=== PATIENT | female | born 1935 | race Caucasian/White ===

== ENCOUNTER 2018-05-19 22:02 | Emergency (ER) | payer MEDICARE, OTHER ==
[2018-05-19 22:07] VITALS: BP 183/86; PULSE 67; TEMP 98.9; BMI 31.1
--- NOTE | 2018-05-19 22:21 | PDOC ---
Attending Attestation - HPI HPI: This patient is an 82 year old Czech-speaking female with PMHx of HTN, HLD, and GERD who presenting with diffcult and painful swallowing since 3pm. Patient states that after eating some chicken and rice that she made, she felt something in stuck in her throat that won't dissipate. She states that it hurts if she tries to swallow any food or drink. She does reports having a wishbone stuck in her throat 7 yrs ago. She denies sob or difficulty breathing. She denies any fever, chills, cough, nausea, or vomiting. Allergies: aspirin (anaphylaxis) - Physicial Exam PE: GENERAL: Awake, alert, and fully oriented, in no acute distress HEAD: No signs of trauma EYES: PERRLA, EOMI, sclera anicteric, conjunctiva clear ENT: Auricles normal inspection, hearing grossly normal, nares patent, Oropharynx is difficult to visualize. Mild tonsilar erythema. Uvula miline. Voice is hoarse. NECK: Normal ROM, supple, no lymphadenopathy, JVD, or masses LUNGS: Breath sounds equal, clear to auscultation bilaterally. No wheezes, and no crackles HEART: Regular rate and rhythm, normal S1 and S2, no murmurs, rubs or gallops ABDOMEN: Soft, nontender, normoactive bowel sounds. No guarding, no rebound. No masses EXTREMITIES: Normal range of motion, no edema. No clubbing or cyanosis. No cords, erythema, or tenderness NEUROLOGICAL: Cranial nerves II through XII grossly intact. SKIN: Warm, Dry, normal turgor, no rashes or lesions noted. <Yamileth Conley - Last Filed: 05/19/18 23:49> - Resident Resident Name: Ольга Garrett - Medical Decision Making 05/20/18 00:16 Pt presents to the ED complaining of foreign body sensation consistent with bone stuck in her throat after eating chicken with bones. No FB visualized on exam. Initial plan was for CT soft tissue neck to rule out foreign body, but patient coughed up a large bone fragment in the Ed. Now feels back to her baseline and is able to swallow without pain. Will discharge home with instructions to return immediately to the ED for worsening symptoms. <Manisha Valderrama - Last Filed: 05/20/18 00:24> Attestations - Attestations 05/19/18 23:54 Documentation prepared by Yamileth Conley, acting as medical laboratory manager for Manisha Valderrama MD. <Yamileth Conley - Last Filed: 05/19/18 23:49>
--- NOTE | 2018-05-19 22:21 | PDOC ---
History of Present Illness <Manisha Valderrama - Last Filed: 05/20/18 00:24> - History of Present Illness Initial Comments: 82 year old female with PMH of HTN, HLD, and GERD presenting with odynophagia and dysphagia since 15:00. Allergic to aspirin (anaphylaxis). States that she was eating chicken that she de-boned herself and some rice. States that her throat felt uncomfortable and that she felt as if something was stuck in her throat. Her throat has been more painful since and it has hurt to swallow and speak. Denies any fever, chills, nausea, vomiting, SOB, or other symptoms. 05/19/18 22:39 <Ольга Garrett - Last Filed: 05/20/18 01:40> - General Chief Complaint: Choking Sensation Stated Complaint: DISCOMFORT IN THROAT Time Seen by Provider: 05/19/18 22:21 Past History <Manisha Valderrama - Last Filed: 05/20/18 00:24> - Past Medical History COPD: No HTN: Yes Other medical history: ostroperosis - Suicide/Smoking/Psychosocial Hx Smoking History: Never smoked Hx Alcohol Use: No Drug/Substance Use Hx: No <Ольга Garrett - Last Filed: 05/20/18 01:40> - Past Medical History Allergies/Adverse Reactions: Allergies Allergy/AdvReac Type Severity Reaction Status Date / Time aspirin Allergy Mild Verified 05/19/18 23:48 Home Medications: Ambulatory Orders NK [No Known Home Medication] 05/19/18 Review of Systems - Review of Systems Constitutional: No: Chills, Diaphoresis, Fever HEENTM: No: Eye Pain, Blurred Vision, Tearing Respiratory: Yes: Other (throatr pain). No: Cough, Shortness of Breath, Productive cough Cardiac (ROS): No: Chest Pain, Edema, Irregular Heart Rate ABD/GI: No: Constipated, Diarrhea, Nausea, Vomiting : No: Burning, Dysuria, Discharge Integumentary: No: Bruising, Erythema, Flushing Neurological: No: Headache, Numbness, Paresthesia Psychiatric: No: Anxiety, Depression Hematologic/Lymphatic: No: Anemia, Blood Clots, Easy Bleeding <Ольга Garrett - Last Filed: 05/20/18 01:40> *Physical Exam - Vital Signs Last Vital Signs Temp Pulse Resp BP Pulse Ox 98.9 F 67 16 183/86 H 98 05/19/18 22:04 05/19/18 22:04 05/19/18 22:04 05/19/18 22:04 05/19/18 22:04 <Lucio Valderramaiam - Last Filed: 05/20/18 00:24> - Vital Signs Last Vital Signs Temp Pulse Resp BP Pulse Ox 98.9 F 67 16 183/86 H 98 05/19/18 22:04 05/19/18 22:04 05/19/18 22:04 05/19/18 22:04 05/19/18 22:04 - Physical Exam General Appearance: Yes: Nourished, Appropriately Dressed. No: Apparent Distress HEENT: positive: EOMI, MIGNON, Normal Voice. negative: Normal ENT Inspection ( mild posterior orapharyngeal erythema and mild swelling. NO FOB noted.) Neck: positive: Trachea midline, Normal Thyroid, Supple. negative: Tender, Rigid Respiratory/Chest: positive: Lungs Clear, Normal Breath Sounds. negative: Chest Tender, Respiratory Distress, Accessory Muscle Use Cardiovascular: positive: Regular Rhythm, Regular Rate Gastrointestinal/Abdominal: positive: Normal Bowel Sounds, Flat, Soft. negative : Tender Lymphatic: negative: Adenopathy, Tenderness Musculoskeletal: positive: Normal Inspection. negative: Decreased Range of Motion Extremity: positive: Normal Capillary Refill, Normal Inspection, Normal Range of Motion. negative: Tender Integumentary: positive: Normal Color, Dry, Warm Neurologic: positive: Fully Oriented, Alert, Normal Mood/Affect, Normal Response , Motor Strength 5/5 <Ольга Garrett - Last Filed: 05/20/18 01:40> ED Treatment Course - LABORATORY CBC & Chemistry Diagram: 05/19/18 23:30 05/19/18 23:30 - ADDITIONAL ORDERS Additional order review: Laboratory Results 05/19/18 05/19/18 23:30 23:30 PT with INR 12.80 INR 1.08 Sodium 138 Potassium 4.1 Chloride 105 Carbon Dioxide 28 Anion Gap 5 L BUN 16 Creatinine 0.8 Creat Clearance w eGFR 69.02 Random Glucose 115 H Calcium 8.7 Total Bilirubin 0.3 AST 21 ALT 20 Alkaline Phosphatase 107 Total Protein 7.6 Albumin 3.3 L 05/19/18 23:30 RBC 4.47 MCV 88.8 MCHC 34.8 RDW 12.9 MPV 7.4 L Neutrophils % 61.5 Lymphocytes % 29.5 Monocytes % 7.0 Eosinophils % 1.6 Basophils % 0.4 - Medications Given in the ED: ED Medications Discontinued Medications Generic Name Dose Route Start Last Admin Trade Name Demarco PRN Reason Stop Dose Admin Acetaminophen 1,000 mg 05/19/18 23:06 05/19/18 23:36 Ofirmev Injection - IVPB 05/19/18 23:07 1,000 mg ONCE ONE Administration <Manisha Valderrama - Last Filed: 05/20/18 00:24> - LABORATORY CBC & Chemistry Diagram: 05/19/18 23:30 05/19/18 23:30 <Ольга Garrett - Last Filed: 05/20/18 01:40> Medical Decision Making - Medical Decision Making Patient with suspected foreign body after ingestion of chicken and rice. CT was originally planned but patient coughed up two chicken bones in front of us. She states the she no longer feels the foreign body sensation in her throat so she no longer needs the CT. She was discharged with return precautions and follow up instructions. 05/20/18 01:37 <Ольга Garrett - Last Filed: 05/20/18 01:40> *DC/Admit/Observation/Transfer - Discharge Dispostion Decision to Admit order: No <Manisha Valderrama - Last Filed: 05/20/18 00:24> <Ольга Garrett - Last Filed: 05/20/18 01:40> Diagnosis at time of Disposition: Foreign body of throat Qualifiers: Encounter type: initial encounter Qualified Code(s): T17.208A - Unspecified foreign body in pharynx causing other injury, initial encounter - Discharge Dispostion Disposition: HOME Condition at time of disposition: Good - Referrals Referrals: Davie Hill MD [Primary Care Provider] - - Patient Instructions Printed Discharge Instructions: DI for Removal of Foreign Body From Esophagus Additional Instructions: You came to the ED complaining of a bone stuck in your throat. You were able to cough up the bone in the ED, and we are sending you home because you feel better. However if you feel pain in the throat or difficulty swallowing, you should return immediately to the ED. Also return for new or worsening symptoms.
[2018-05-19] MEDS ORDERED: ACETAMINOPHEN 1000 MG/100 ML VIAL (NON FORMULARY) IVPB ONE (23:06)
[2018-05-19] MEDS ORDERED: ACETAMINOPHEN INJECTION 100 ML IVPB ONE (23:21)
[2018-05-19 23:40] LABS: BASO % 0.4 % (0-2.0); EOS % 1.6 % (0-4.5); HEMATOCRIT 39.7 % (32.4-45.2); HEMOGLOBIN 13.8 GM/dL (10.7-15.3); LYMPH % 29.5 % (8-40); MCH 30.9 pg (25.7-33.7); MCHC 34.8 g/dl (32.0-36.0); MEAN CELL VOLUME 88.8 fl (80-96); MEAN PLT VOLUME 7.4 fl (7.5-11.1); NEUT % 61.5 % (42.8-82.8); PLATELET COUNT 240 K/MM3 (134-434); RBC 4.47 M/mm3 (3.60-5.2); RDW 12.9 % (11.6-15.6); WHITE BLOOD COUNT 8.7 K/mm3 (4.0-10.0)
[2018-05-19 23:58] LABS: INR 1.08 (0.83-1.09); PROTHROMBIN TIME (PATIENT) 12.8 SEC (9.7-13.0)
[2018-05-20 00:15] LABS: ALBUMIN 3.3 g/dl (3.4-5.0); ALK PHOS 107 U/L (45-117); ANION GAP 5 MMOL/L (8-16); BILIRUBIN,TOTAL 0.3 mg/dL (0.2-1); BLOOD UREA NITROGEN 16 mg/dL (7-18); CALCIUM 8.7 mg/dL (8.5-10.1); CHLORIDE 105 mmol/L (98-107); CO2 28 mmol/L (21-32); CREATININE 0.8 mg/dL (0.55-1.3); GLUCOSE,RANDOM 115 mg/dL (74-106); POTASSIUM 4.1 mmol/L (3.5-5.1); SGOT/AST 21 U/L (15-37); SGPT/ALT 20 U/L (13-61); SODIUM 138 mmol/L (136-145); TOT PROT 7.6 g/dl (6.4-8.2)
== END 2018-05-20 00:45 | disposition home or self-care (01) ==
LOC: JER 22:02
PROC: 3E033NZ Introduction of Analgesics, Hypnotics, Sedatives into Peripheral Vein, Percutaneous Approach (ICD-10-PCS; principal; 2018-05-19)
DX: T17.208A Unspecified foreign body in pharynx causing other injury, initial encounter (principal); X58.XXXA Exposure to other specified factors, initial encounter; Y93.89 Activity, other specified; Y92.038 Other place in apartment as the place of occurrence of the external cause; Y99.8 Other external cause status; I10 Essential (primary) hypertension; E78.5 Hyperlipidemia, unspecified; K21.9 Gastro-esophageal reflux disease without esophagitis; Z88.6 Allergy status to analgesic agent
CPT/HCPCS: 36415; 80053; 85025; 85610; 96374; 99281-25; J0131

== ENCOUNTER 2018-08-13 08:51 | Emergency (ER) | payer MEDICARE, OTHER ==
[2018-08-13 08:57] VITALS: BP 132/83; PULSE 55; TEMP 98.2; BMI 29.4
[2018-08-13] MEDS ORDERED: diphenhydrAMINE HCL 25 MG CAPSULE (FP) PO ONE ×2 (09:23→09:28)
[2018-08-13] MEDS ORDERED: DEXAMETHASONE LIQUID 0.5 MG/5 ML 240 ML BULK BOTTLE PO ONE (09:23)
--- NOTE | 2018-08-13 09:27 | PDOC ---
History of Present Illness - General Chief Complaint: Rash Stated Complaint: RASH Time Seen by Provider: 08/13/18 09:10 History Source: Patient Exam Limitations: No Limitations - History of Present Illness Initial Comments: 08/13/18 09:24 Armenian interpretation, since was in the garden and thinks was exposed to some type of plant that is caused swelling and itchin gto face . Denies shortness of breath, denies tongue or lip swelling. Denies wheezing. Is uncertain as to type of plant to resolve although has used Caladryl cream to face with minimal relief 08/13/18 14:19 Timing/Duration: reports: getting worse Severity: Yes: mild Location: reports: face Respiratory Risk Factors: reports: exposure to allergen Modifying Factors: improves with: calamine lotion Past History - Past Medical History Allergies/Adverse Reactions: Allergies Allergy/AdvReac Type Severity Reaction Status Date / Time aspirin Allergy Mild Verified 08/13/18 08:57 Home Medications: Ambulatory Orders NK [No Known Home Medication] 05/19/18 COPD: No GI Disorders: Yes (ulcers) HTN: Yes - Suicide/Smoking/Psychosocial Hx Smoking History: Never smoked Information on smoking cessation initiated: No Hx Alcohol Use: No Drug/Substance Use Hx: No Review of Systems - Review of Systems Able to Perform ROS?: No Is the patient limited Greek proficient: No Constitutional: Yes: Symptoms Reported, See HPI. No: Chills, Fever, Malaise HEENTM: Yes: See HPI. No: Symptoms Reported, Nose Pain, Nose Congestion, Throat Pain, Difficulty Swallowing, Mouth Swelling Respiratory: Yes: See HPI. No: Symptoms reported, Cough, Shortness of Breath, Wheezing Integumentary: Yes: Symptoms Reported, Pruritus (mild erythema, and pruritus noted to all of face consistent with areas she used topical applications to face ), Rash All Other Systems: Reviewed and Negative *Physical Exam - Vital Signs Last Vital Signs Temp Pulse Resp BP Pulse Ox 98.2 F 55 L 17 132/83 99 08/13/18 08:55 08/13/18 08:55 08/13/18 08:55 08/13/18 08:55 08/13/18 08:55 - Physical Exam General Appearance: Yes: Nourished, Appropriately Dressed HEENT: positive: MIGNON, Normal ENT Inspection (no swelling to lips, tongue, airway is patent.), TMs Normal, Pharynx Normal, Rhinorrhea Neck: positive: Supple. negative: Tender Respiratory/Chest: positive: Lungs Clear, Normal Breath Sounds Integumentary: positive: Normal Color, Dry, Warm, Other (with mild erythema and macular rash noted to forehead, cheeks, chin and extending only to face. Has no migration into scalp, no migration down to neck.) Neurologic: positive: emergency communications dispatcher II-XII NML intact, Fully Oriented, Alert, Normal Mood/ Affect, Normal Response, Motor Strength 5/5 Progress Note - Progress Note Progress Note: Contact dermatitis, given 1 dose of Decadron and encouraged to use Benadryl for antihistamine use and avoid contact with same *DC/Admit/Observation/Transfer Diagnosis at time of Disposition: Contact dermatitis Qualifiers: Contact dermatitis type: allergic Contact dermatitis trigger: non-food plants Qualified Code(s): L23.7 - Allergic contact dermatitis due to plants, except food - Discharge Dispostion Disposition: HOME Condition at time of disposition: Stable Decision to Admit order: No - Referrals - Patient Instructions Printed Discharge Instructions: DI for Contact Dermatitis Additional Instructions: Rest, keep cool and dry- avoid strenuous activity or hot /humid environments Less hot showers, no abrasive soaps May use heavy creams like Eucerin or Cetaphil to keep skin moist May apply Aveeno, calamine lotion, [id number] hydrocortisone creams as needed for symptoms May use Benadryl at night for antihistamine, Zyrtec/ Malathi or Claritin for daytime antihistamine use to help with itching May use [id number] hydrocortisone cream on all areas except face Try to identify cause for rash and avoid exposures Followup with PMD in one week if no resolution Make appointment with transition coach for evaluation when possible - Post Discharge Activity Forms/Work/School Notes: Back to Work
[2018-08-13] MEDS ORDERED: DEXAMETHASONE SOD PHOSPHATE 10 MG/1 ML VIAL ONE (09:28)
== END 2018-08-13 09:40 | disposition home or self-care (01) ==
LOC: JERFT 08:51
DX: L23.7 Allergic contact dermatitis due to plants, except food (principal)
CPT/HCPCS: 99281-25

== ENCOUNTER 2018-09-09 15:15 | Emergency (ER) | payer MEDICARE, OTHER ==
[2018-09-09 15:21] VITALS: BP 133/67; PULSE 63; TEMP 98.2; BMI 30.7
[2018-09-09] MEDS ORDERED: SULFAMETHOXAZOLE/TRIMETHOPRIM 800MG/160MG D.S. TABLET PO ONE (15:53)
[2018-09-09] MEDS ORDERED: CEPHALEXIN MONOHYDRATE 500 MG CAPSULE (UD) PO ONE (15:53)
[2018-09-09] MEDS ORDERED: SULFAMETHOXAZOLE/TRIMETHOPRIM 800MG/160MG D.S. TABLET ONE (15:59)
[2018-09-09] MEDS ORDERED: CEPHALEXIN MONOHYDRATE 500 MG CAPSULE (UD) ONE (16:00)
--- NOTE | 2018-09-09 16:32 | PDOC ---
History of Present Illness - General Chief Complaint: Bite Stated Complaint: INSECT BITE Time Seen by Provider: 09/09/18 15:29 History Source: Patient, Family Exam Limitations: Language Barrier Past History - Past Medical History Allergies/Adverse Reactions: Allergies Allergy/AdvReac Type Severity Reaction Status Date / Time aspirin Allergy Mild Verified 09/09/18 15:21 Home Medications: Ambulatory Orders Cephalexin Monohydrate [Keflex -] 500 mg PO Q6H #28 capsule 09/09/18 Clobetasol Propionate/Emoll [Clobetasol Emollient 0.05% Crm] 30 gm TP BID #1 cream..g. 09/09/18 Sulfamethoxazole/Trimethoprim [Bactrim Ds -] 1 tab PO BID #14 tablet 09/09/18 COPD: No GI Disorders: Yes (ulcers) HTN: Yes - Suicide/Smoking/Psychosocial Hx Smoking History: Never smoked Hx Alcohol Use: No Drug/Substance Use Hx: No *Physical Exam - Vital Signs Last Vital Signs Temp Pulse Resp BP Pulse Ox 98.2 F 63 18 133/67 97 09/09/18 15:18 09/09/18 15:18 09/09/18 15:18 09/09/18 15:18 09/09/18 15:18 - Physical Exam General Appearance: No: Apparent Distress Extremity: positive: Other (+few tiny blisters along LUE (along L upper arm), surrounding area of erythema and warmth; small area of induration, no fluctuance noted, no abscess, no streaking) Integumentary: positive: Erythema. negative: Mottled, Hives, Petechiae, Ecchymosis, Bruising Neurologic: positive: Alert, Normal Mood/Affect ED Treatment Course - Medications Given in the ED: ED Medications Discontinued Medications Generic Name Dose Route Start Last Admin Trade Name Freq PRN Reason Stop Dose Admin Cephalexin HCl 500 mg 09/09/18 15:53 09/09/18 16:04 Keflex - PO 09/09/18 15:54 500 mg ONCE ONE Administration Trimethoprim/Sulfamethoxazole 1 each 09/09/18 15:53 09/09/18 16:04 Bactrim Ds - PO 09/09/18 15:54 1 each ONCE ONE Administration Medical Decision Making - Medical Decision Making 82 y/o F hx of HTN, GERD, PUD presents with redness along L upper extremity from yesterday. Noticed something small yesterday but didn't heed much attention it. Today noticed area of redness. States area is also very itchy. Per daughter, patient only went to [employer] and grocery shopping yesterday. Denies recent yardwork/going to park/camping/hiking, recent travel, fever, sob, cp, abd pain, n/v. Possible poison johana with overlying cellulitis Given Keflex and Bactrim Area of redness demarcated 09/09/18 16:29 *DC/Admit/Observation/Transfer Diagnosis at time of Disposition: Poison johana Cellulitis Qualifiers: Site of cellulitis: extremity Site of cellulitis of extremity: upper extremity Laterality: left Qualified Code(s): L03.114 - Cellulitis of left upper limb - Discharge Dispostion Disposition: HOME Condition at time of disposition: Stable Decision to Admit order: No - Prescriptions Prescriptions: Cephalexin Monohydrate [Keflex -] 500 mg PO Q6H #28 capsule Clobetasol Propionate/Emoll [Clobetasol Emollient 0.05% Crm] 30 gm TP BID #1 cream..g. Sulfamethoxazole/Trimethoprim [Bactrim Ds -] 1 tab PO BID #14 tablet - Referrals - Patient Instructions Printed Discharge Instructions: DI for Cellulitis -- Adult, DI for Poison Johana Allergy Additional Instructions: Thank you for choosing [facility]. It was a pleasure taking care of you. Apply the cream as directed Take the antibiotics as prescribed Follow-up with your doctor in 2 days Return to the Emergency Department if your symptoms worsen or persist, you have fever, redness spreads beyond the area demarcated, streaking, pustular drainage or other concerning symptoms. Leobardo por elegir el [facility]. Fue un placer cuidar de ti. Aplicar la crema segn las indicaciones. [place] los antibiticos segn lo prescrito. Seguimiento con santana mdico en 2 rey. Regrese al departamento de emergencias si la nena sntomas empeoran o persisten, tiene fiebre, el enrojecimiento se extiende ms all del ekta demarcada, estras , drenaje pustular u otros sntomas relacionados. - Post Discharge Activity
== END 2018-09-09 16:40 | disposition home or self-care (01) ==
LOC: JERFT 15:15
DX: L23.7 Allergic contact dermatitis due to plants, except food (principal); L03.114 Cellulitis of left upper limb
CPT/HCPCS: 99281-25

== ENCOUNTER 2019-01-23 09:58 | Emergency (ER) | payer MEDICARE ==
[2019-01-23 10:12] VITALS: BP 128/77; PULSE 77; TEMP 98.2; BMI 30.2
--- NOTE | 2019-01-23 12:52 | PDOC ---
History of Present Illness - General Chief Complaint: Pain Stated Complaint: RT SIDED EAR PAIN/FEVER Time Seen by Provider: 01/23/19 11:41 - History of Present Illness Initial Comments: 01/23/19 12:50 83-year-old female with past medical history of gastric ulcer disease and hypertension presents for evaluation of right-sided painful TMJ area x2 days without systemic symptoms. Past History - Past Medical History Allergies/Adverse Reactions: Allergies Allergy/AdvReac Type Severity Reaction Status Date / Time aspirin Allergy Mild Verified 01/23/19 10:08 Home Medications: Ambulatory Orders Cephalexin Monohydrate [Keflex -] 500 mg PO Q6H #28 capsule 09/09/18 Clobetasol Propionate/Emoll [Clobetasol Emollient 0.05% Crm] 30 gm TP BID #1 cream..g. 09/09/18 Sulfamethoxazole/Trimethoprim [Bactrim Ds -] 1 tab PO BID #14 tablet 09/09/18 COPD: No GI Disorders: Yes (ulcers) HTN: Yes - Immunization History Immunization Up to Date: Yes - Psycho Social/Smoking Cessation Hx Smoking History: Never smoked Have you smoked in the past 12 months: No Information on smoking cessation initiated: No Hx Alcohol Use: No Drug/Substance Use Hx: No Review of Systems - Review of Systems Musculoskeletal: Yes: Joint Pain *Physical Exam - Vital Signs Last Vital Signs Temp Pulse Resp BP Pulse Ox 98.2 F 77 18 128/77 96 01/23/19 10:09 01/23/19 10:09 01/23/19 10:09 01/23/19 10:09 01/23/19 10:09 - Physical Exam HEENT: positive: MIGNON, Normal ENT Inspection, Normal Voice, Symmetrical, TMs Normal, Pharynx Normal, Other (There is tenderness about the right TMJ joint.). 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 Recommended use of Tylenol and follow-up with ear nose and throat. Discharge - Discharge Information Problems reviewed: Yes Clinical Impression/Diagnosis: TMJ arthralgia Condition: Stable Disposition: HOME - Admission No - Follow up/Referral Referrals: Josh Cole MD [Staff Physician] - - Patient Discharge Instructions Patient Printed Discharge Instructions: Temporomandibular Disorder, DI for Temporomandibular Disorder Additional Instructions: Tylenol as directed for pain. Return to the emergency room with for worsening symptoms. Follow-up without fail with ENT doctor in 1 to 2 days. - Post Discharge Activity
== END 2019-01-23 13:03 | disposition home or self-care (01) ==
LOC: JERFT 09:58
DX: M26.621 Arthralgia of right temporomandibular joint (principal); I10 Essential (primary) hypertension; Z87.19 Personal history of other diseases of the digestive system; Z88.6 Allergy status to analgesic agent
CPT/HCPCS: 99281-25

== ENCOUNTER 2021-08-14 20:05 | Inpatient (IN) | payer OTHER ==
[2021-08-14] MEDS ORDERED: ACETAMINOPHEN INJECTION 100 ML IVPB ONE (20:35)
[2021-08-14] MEDS ORDERED: ACETAMINOPHEN 1000 MG/100 ML BAG IVPB ONE ×2 (20:38→20:39)
[2021-08-14 20:49] LABS: BASO % 0.1 % (0-2.0); EOS % 0.9 % (0-4.5); HEMATOCRIT 41.4 % (32.4-45.2); HEMOGLOBIN 14.4 GM/dL (10.7-15.3); LYMPH % 6.3 % (8-40); MCH 30.5 pg (25.7-33.7); MCHC 34.9 g/dl (32.0-36.0); MEAN CELL VOLUME 87.5 fl (80-96); MEAN PLT VOLUME 7.2 fl (7.5-11.1); NEUT % 86.7 % (42.8-82.8); PLATELET COUNT 254 10^3/uL (134-434); RBC 4.73 M/mm3 (3.60-5.2); WHITE BLOOD COUNT 13.5 K/mm3 (4.0-10.0)
[2021-08-14 20:55] LABS: INR 1.21 (0.83-1.09); PROTHROMBIN TIME (PATIENT) 13.9 SEC (9.7-13.0)
[2021-08-14 20:58] LABS: ACTIVATED PTT 27.7 SECONDS (25.2-36.5)
[2021-08-14 21:06] LABS: ALBUMIN 3.4 g/dl (3.4-5.0); BLOOD UREA NITROGEN 13.7 mg/dL (7-18); CALCIUM 9.2 mg/dL (8.5-10.1); MAGNESIUM 1.9 mg/dL (1.8-2.4)
[2021-08-14 21:09] LABS: CREATININE 0.9 mg/dL (0.55-1.3)
[2021-08-14 21:11] LABS: BILIRUBIN,TOTAL 0.7 mg/dL (0.2-1); TOT PROT 8.1 g/dl (6.4-8.2)
[2021-08-14 21:14] LABS: N-TERMINAL BNP 84.8 pg/ml (5-450)
[2021-08-14] MEDS ORDERED: DEXAMETHASONE SOD PHOSPHATE 20 MG/5 ML VIAL IVPB ONE (21:23)
[2021-08-14 21:26] LABS: VENOUS BASE EXCESS -1.5 mmol/L (-2-2); VENOUS O2 SATURATION 70.9 % (70-80); VENOUS PCO2 34.6 mmHg (38-52); VENOUS PH 7.425 (7.310-7.410)
[2021-08-14] MEDS ORDERED: DEXAMETHASONE SOD PHOSPHATE 10 MG/1 ML VIAL ONE (21:28)
[2021-08-15] MEDS ORDERED: ACETAMINOPHEN 325 MG TABLET (FP) PO PRN (02:27)
[2021-08-15] MEDS ORDERED: POTASSIUM CHLORIDE TABS 20 MEQ TABLET.ER (FP) PO ONE ×2 (02:32→03:14)
[2021-08-15] MEDS ORDERED: ALBUTEROL SO4 HFA INHALER IH PRN (02:42)
[2021-08-15 08:24] LABS: BASO % 0.4 % (0-2.0); HEMATOCRIT 42.2 % (32.4-45.2); HEMOGLOBIN 14.5 GM/dL (10.7-15.3); LYMPH % 10.9 % (8-40); MCH 30.4 pg (25.7-33.7); MCHC 34.4 g/dl (32.0-36.0); MEAN CELL VOLUME 88.5 fl (80-96); MEAN PLT VOLUME 8.1 fl (7.5-11.1); MONO % 1.1 % (3.8-10.2); NEUT % 87.6 % (42.8-82.8); PLATELET COUNT 264 10^3/uL (134-434); RBC 4.77 M/mm3 (3.60-5.2); RDW 12.8 % (11.6-15.6); WHITE BLOOD COUNT 15.8 K/mm3 (4.0-10.0)
[2021-08-15 08:32] LABS: BLOOD UREA NITROGEN 17.9 mg/dL (7-18)
[2021-08-15 08:34] LABS: ALBUMIN 3.2 g/dl (3.4-5.0); CALCIUM 9.4 mg/dL (8.5-10.1); CREATININE 0.9 mg/dL (0.55-1.3)
[2021-08-15 08:36] LABS: BILIRUBIN,TOTAL 0.5 mg/dL (0.2-1); TOT PROT 7.9 g/dl (6.4-8.2)
[2021-08-15] MEDS ORDERED: ENOXAPARIN NA (PORCINE) 40 MG/0.4 ML DISP.SYRIN SQ ONE (10:00)
[2021-08-15] MEDS ORDERED: DEXAMETHASONE SOD PHOSPHATE 10 MG/1 ML VIAL ONE (10:00)
[2021-08-15] MEDS: ENOXAPARIN NA (PORCINE) 40 MG/0.4 ML DISP.SYRIN SQ SCH (10:11)
[2021-08-15] MEDS: DEXAMETHASONE SOD PHOSPHATE 10 MG/1 ML VIAL IVPUSH SCH (10:11)
[2021-08-15] MEDS: INSULIN SLIDING SCALE (NOVOLOG) 1 VIAL SQ SCH ×3 (12:11→22:34)
[2021-08-15] MEDS ORDERED: CEFTRIAXONE 1 GM in DEXTROSE 5%-WATER - 50 ML IVPB SCH ×2 (14:15→18:30)
[2021-08-15 16:25] VITALS: BMI 29.9
[2021-08-15] MEDS ORDERED: cefTRIAXone SODIUM 1 GM VIAL ONE (18:20)
[2021-08-15] MEDS ORDERED: DEXTROSE 5%-WATER - 50 ML IVPB ONE (18:20)
[2021-08-15 22:03] LABS: PH,URINE 5.5 (5.0-8.0); URINE APPEARANCE CLEAR; URINE BILIRUBIN NEGATIVE (NEGATIVE); URINE COLOR YELLOW; URINE GLUCOSE (UA) NEGATIVE (NEGATIVE); URINE KETONE NEGATIVE (NEGATIVE); URINE LEUK ESTERASE NEGATIVE (NEGATIVE); URINE NITRITE NEGATIVE (NEGATIVE); URINE PROTEIN NEGATIVE (NEGATIVE); URINE UROBILINOGEN 0.2 mg/dL (0.2-1.0)
[2021-08-16] MEDS: INSULIN SLIDING SCALE (NOVOLOG) 1 VIAL SQ SCH ×4 (07:36→23:28)
[2021-08-16] MEDS ORDERED: cefTRIAXone SODIUM 1 GM VIAL ONE (09:31)
[2021-08-16] MEDS ORDERED: DEXTROSE 5%-WATER - 50 ML IVPB ONE (09:31)
[2021-08-16] MEDS: LOSARTAN POTASSIUM 50 MG TABLET PO SCH (10:10)
[2021-08-16] MEDS: ENOXAPARIN NA (PORCINE) 40 MG/0.4 ML DISP.SYRIN SQ SCH (10:10)
[2021-08-16] MEDS: DEXAMETHASONE SOD PHOSPHATE 10 MG/1 ML VIAL IVPUSH SCH (10:10)
[2021-08-16 11:04] LABS: HEMOGLOBIN 13.6 GM/dL (10.7-15.3); RBC 4.46 M/mm3 (3.60-5.2); WHITE BLOOD COUNT 22.9 K/mm3 (4.0-10.0)
[2021-08-16 11:05] LABS: HEMATOCRIT 39.5 % (32.4-45.2); MCH 30.5 pg (25.7-33.7); MCHC 34.4 g/dl (32.0-36.0); MEAN CELL VOLUME 88.6 fl (80-96); MEAN PLT VOLUME 8.1 fl (7.5-11.1); PLATELET COUNT 298 10^3/uL (134-434); RDW 13.2 % (11.6-15.6)
[2021-08-16 11:54] LABS: ALBUMIN 3.2 g/dl (3.4-5.0)
[2021-08-16 11:55] LABS: ANISOCYTOSIS 1+; BLOOD UREA NITROGEN 31.4 mg/dL (7-18); MACROCYTOSIS 0
[2021-08-16 11:56] LABS: BILIRUBIN,TOTAL 0.2 mg/dL (0.2-1); CREATININE 0.9 mg/dL (0.55-1.3); MAGNESIUM 2.5 mg/dL (1.8-2.4); TOT PROT 7.5 g/dl (6.4-8.2)
[2021-08-16 11:57] LABS: CALCIUM 9.2 mg/dL (8.5-10.1)
[2021-08-17] MEDS: INSULIN SLIDING SCALE (NOVOLOG) 1 VIAL SQ SCH (06:23)
[2021-08-17 09:01] LABS: HEMATOCRIT 41.1 % (32.4-45.2); HEMOGLOBIN 14.3 GM/dL (10.7-15.3); MCH 30.8 pg (25.7-33.7); MCHC 34.8 g/dl (32.0-36.0); MEAN CELL VOLUME 88.4 fl (80-96); MEAN PLT VOLUME 7.4 fl (7.5-11.1); PLATELET COUNT 269 10^3/uL (134-434); RBC 4.66 M/mm3 (3.60-5.2); RDW 13.1 % (11.6-15.6); WHITE BLOOD COUNT 10.7 K/mm3 (4.0-10.0)
[2021-08-17 09:33] LABS: CREATININE 0.7 mg/dL (0.55-1.3)
[2021-08-17 09:34] LABS: BILIRUBIN,TOTAL 0.2 mg/dL (0.2-1); BLOOD UREA NITROGEN 26.7 mg/dL (7-18); CALCIUM 8.6 mg/dL (8.5-10.1); TOT PROT 7.4 g/dl (6.4-8.2)
[2021-08-17 09:36] LABS: ALBUMIN 3.1 g/dl (3.4-5.0)
[2021-08-17 09:38] LABS: MAGNESIUM 2.2 mg/dL (1.8-2.4)
[2021-08-17 09:54] LABS: ANISOCYTOSIS 0; HELMET CELLS 0; HOWELL-JOLLY BODIES 0; MACROCYTOSIS 0; OVALOCYTE 0; ROULEAU 0; SICKELED CELLS 0; TARGET CELLS 0; TEAR DROP CELLS 0; TOXIC GRANULATION 0
[2021-08-17] MEDS: LOSARTAN POTASSIUM 50 MG TABLET PO SCH (10:25)
[2021-08-17] MEDS: ENOXAPARIN NA (PORCINE) 40 MG/0.4 ML DISP.SYRIN SQ SCH (10:25)
[2021-08-18 09:20] LABS: HEMATOCRIT 38.3 % (32.4-45.2); HEMOGLOBIN 13.1 GM/dL (10.7-15.3); MCH 30.4 pg (25.7-33.7); MCHC 34.3 g/dl (32.0-36.0); MEAN CELL VOLUME 88.6 fl (80-96); MEAN PLT VOLUME 7.8 fl (7.5-11.1); PLATELET COUNT 275 10^3/uL (134-434); RBC 4.32 M/mm3 (3.60-5.2); WHITE BLOOD COUNT 8.1 K/mm3 (4.0-10.0)
[2021-08-18] MEDS: LOSARTAN POTASSIUM 50 MG TABLET PO SCH (09:36)
[2021-08-18] MEDS: ENOXAPARIN NA (PORCINE) 40 MG/0.4 ML DISP.SYRIN SQ SCH (09:36)
[2021-08-18 09:43] VITALS: BP 148/88; PULSE 78; TEMP 98.7
[2021-08-18 10:06] LABS: ANISOCYTOSIS 0; HELMET CELLS 0; HOWELL-JOLLY BODIES 0; MACROCYTOSIS 0; OVALOCYTE 0; ROULEAU 0; SICKELED CELLS 0; TARGET CELLS 0; TEAR DROP CELLS 0; TOXIC GRANULATION 0
[2021-08-18 11:08] LABS: BLOOD UREA NITROGEN 19.1 mg/dL (7-18); CALCIUM 8.4 mg/dL (8.5-10.1); MAGNESIUM 2.3 mg/dL (1.8-2.4)
[2021-08-18 11:09] LABS: ALBUMIN 2.8 g/dl (3.4-5.0)
[2021-08-18 11:13] LABS: BILIRUBIN,TOTAL 1.2 mg/dL (0.2-1); CREATININE 0.7 mg/dL (0.55-1.3); TOT PROT 6.5 g/dl (6.4-8.2)
== END 2021-08-18 14:14 | disposition home health service (06) | DRG 872 ==
LOC: JER 20:05 → JERBED 22:46 → J8W 08-15 16:11
PROVIDERS: ADMIT Hospitalist; ATTEND Nurse Practitioner Acute Care
DX: A41.89 Other specified sepsis (principal); I10 Essential (primary) hypertension; I73.9 Peripheral vascular disease, unspecified; E66.9 Obesity, unspecified; Z68.30 Body mass index [BMI] 30.0-30.9, adult; R41.82 Altered mental status, unspecified; E03.9 Hypothyroidism, unspecified; R00.0 Tachycardia, unspecified; D72.829 Elevated white blood cell count, unspecified; R09.02 Hypoxemia; J06.9 Acute upper respiratory infection, unspecified
CPT/HCPCS: 0241U-QW; 36415; 70450-TC; 71045-TC-FY; 71275-TC; 80053; 81003; 82550; 82553; 82728; 82803; 82962; 83036; 83605; 83615; 83735; 83880; 84484; 85025; 85379; 85610; 85730; 86140; 86850; 86900; 86901; 87040; 87086; 87899; 93005; 93010; 93306-TC; 94010; 94761; 99285-25; C9803-CS; J1100; Q9967; U0003; U0005

== ENCOUNTER 2022-07-23 11:04 | Emergency (ER) | payer MEDICARE, OTHER ==
[2022-07-23 11:15] VITALS: TEMP 97.6; BMI 32.2
[2022-07-23] MEDS ORDERED: ACETAMINOPHEN 1000 MG/100 ML BAG IVPB ONE (12:26)
[2022-07-23 12:33] LABS: BASO % 0.4 % (0-2.0); EOS % 1.4 % (0-4.5); HEMATOCRIT 42.5 % (32.4-45.2); LYMPH % 36.6 % (8-40); MCH 30.8 pg (25.7-33.7); MCHC 35.4 g/dl (32.0-36.0); MEAN PLT VOLUME 7.3 fl (7.5-11.1); MONO % 7.2 % (3.8-10.2); NEUT % 54.4 % (42.8-82.8); PLATELET COUNT 286 10^3/uL (134-434); RBC 4.88 M/mm3 (3.60-5.2); RDW 12.8 % (11.6-15.6); WHITE BLOOD COUNT 9.1 K/mm3 (4.0-10.0)
[2022-07-23] MEDS ORDERED: ACETAMINOPHEN INJECTION 100 ML IVPB ONE (12:34)
[2022-07-23 12:49] LABS: POTASSIUM 4.1 mmol/L (3.5-5.1)
[2022-07-23 12:51] LABS: CALCIUM 10.1 mg/dL (8.5-10.1)
[2022-07-23 12:52] LABS: ALBUMIN 3.7 g/dl (3.4-5.0); BLOOD UREA NITROGEN 15.4 mg/dL (7-18)
[2022-07-23 12:54] LABS: CREATININE 0.8 mg/dL (0.55-1.3)
[2022-07-23 12:56] LABS: BILIRUBIN,TOTAL 0.4 mg/dL (0.2-1); TOT PROT 8.2 g/dl (6.4-8.2)
[2022-07-23 13:37] LABS: PH,URINE 6.5 (5.0-8.0); URINE APPEARANCE CLEAR; URINE BILIRUBIN NEGATIVE (NEGATIVE); URINE COLOR YELLOW; URINE GLUCOSE (UA) NEGATIVE (NEGATIVE); URINE KETONE NEGATIVE (NEGATIVE); URINE LEUK ESTERASE NEGATIVE (NEGATIVE); URINE NITRITE NEGATIVE (NEGATIVE); URINE PROTEIN NEGATIVE (NEGATIVE); URINE UROBILINOGEN 0.2 mg/dL (0.2-1.0)
[2022-07-23 16:31] VITALS: BP 190/69; PULSE 54; RESP 16
== END 2022-07-23 17:07 | disposition home or self-care (01) ==
LOC: JER 11:04
PROC: 3E033NZ Introduction of Analgesics, Hypnotics, Sedatives into Peripheral Vein, Percutaneous Approach (ICD-10-PCS; principal; 2022-07-23)
DX: M54.50 Low back pain, unspecified (principal); R11.0 Nausea; Z76.0 Encounter for issue of repeat prescription
CPT/HCPCS: 36415; 74177-TC; 80053; 81003; 83690; 84484; 85025; 87086; 93005; 93010; 96374; 99285-25; Q9967

== ENCOUNTER 2024-02-10 10:09 | Emergency (ER) | payer MEDICARE, OTHER ==
[2024-02-10 10:19] VITALS: PULSE 60; RESP 16; TEMP 98.4; BMI 28.9
[2024-02-10] MEDS ORDERED: LIDOCAINE 4% PATCH TP ONE (11:27)
[2024-02-10] MEDS ORDERED: ACETAMINOPHEN INJECTION 100 ML ONE (11:27)
[2024-02-10 11:42] LABS: BASO % 0.5 % (0-2.0); EOS % 2.4 % (0-4.5); HEMATOCRIT 42.9 % (32.4-45.2); HEMOGLOBIN 14.6 GM/dL (10.7-15.3); MCH 30.6 pg (25.7-33.7); MCHC 34.1 g/dl (32.0-36.0); MEAN CELL VOLUME 89.7 fl (80-96); MEAN PLT VOLUME 7.2 fl (7.5-11.1); MONO % 8.9 % (3.8-10.2); NEUT % 50.2 % (42.8-82.8); PLATELET COUNT 255 10^3/uL (134-434); RBC 4.78 M/mm3 (3.60-5.2); RDW 12.8 % (11.6-15.6); WHITE BLOOD COUNT 6.6 K/mm3 (4.0-10.0)
[2024-02-10 11:56] LABS: INR 1.05 (0.83-1.09); PROTHROMBIN TIME (PATIENT) 11.8 SEC (9.7-13.0)
[2024-02-10 11:58] LABS: ACTIVATED PTT 30.5 SECONDS (25.2-36.5)
[2024-02-10 12:08] LABS: POTASSIUM 4.2 mmol/L (3.5-5.1)
[2024-02-10 12:10] LABS: CALCIUM 10.1 mg/dL (8.5-10.1)
[2024-02-10 12:11] LABS: ALBUMIN 3.5 g/dl (3.4-5.0); BLOOD UREA NITROGEN 16.1 mg/dL (7-18)
[2024-02-10 12:14] LABS: CREATININE 0.8 mg/dL (0.55-1.3)
[2024-02-10 12:15] LABS: BILIRUBIN,TOTAL 0.4 mg/dL (0.2-1)
[2024-02-10 12:16] LABS: TOT PROT 7.9 g/dl (6.4-8.2)
[2024-02-10] MEDS ORDERED: LOSARTAN POTASSIUM 50 MG TABLET ONE (13:09)
[2024-02-10] MEDS: LOSARTAN POTASSIUM 50 MG TABLET PO ONE (13:12)
[2024-02-10] MEDS: ACETAMINOPHEN 1000 MG/100 ML BAG IVPB ONE (14:51)
[2024-02-10] MEDS: LIDOCAINE 4% PATCH TP ONE (14:51)
[2024-02-10 15:03] VITALS: BP 177/98
[2024-02-10 16:02] LABS: URINE APPEARANCE CLEAR; URINE BILIRUBIN NEGATIVE (NEGATIVE); URINE COLOR YELLOW; URINE GLUCOSE (UA) NEGATIVE (NEGATIVE); URINE KETONE NEGATIVE (NEGATIVE); URINE LEUK ESTERASE 2+ (NEGATIVE); URINE NITRITE POSITIVE (NEGATIVE); URINE PROTEIN NEGATIVE (NEGATIVE); URINE UROBILINOGEN 0.2 mg/dL (0.2-1.0)
[2024-02-10 16:25] LABS: EPI CELLS 34.4 /uL (0-25.1); HYALINE CASTS 0.13 /uL (0-3.1); URINE BACTERIA 12191.3 /uL (0-1359); URINE RBC 10.1 /uL (0-23.9); URINE WBC 50.4 /uL (0-25.8)
[2024-02-10] MEDS ORDERED: CEPHALEXIN MONOHYDRATE 500 MG CAPSULE (UD) ONE (16:56)
[2024-02-10] MEDS: CEPHALEXIN MONOHYDRATE 500 MG CAPSULE (UD) PO ONE (16:59)
[2024-02-10] MEDS ORDERED: LIDOCAINE PATCH REMOVAL MC ONE (22:00)
== END 2024-02-10 17:09 | disposition home or self-care (01) ==
LOC: JER 10:09
DX: N39.0 Urinary tract infection, site not specified (principal); M54.6 Pain in thoracic spine; R07.9 Chest pain, unspecified; Z20.822 Contact with and (suspected) exposure to COVID-19
CPT/HCPCS: 0241U-QW; 36415; 71045-TC-FY; 72128-TC; 80053; 81003; 84484; 85025; 85610; 85730; 86850; 86900; 86901; 87086; 87186; 93005; 93010; 99285-25

== ENCOUNTER 2024-05-08 18:35 | Emergency (ER) | payer MEDICARE, OTHER ==
[2024-05-08 18:58] VITALS: RESP 18; BMI 32.4
[2024-05-08 19:30] VITALS: BP 154/83; TEMP 98.2
[2024-05-08 19:35] VITALS: PULSE 63
== END 2024-05-08 20:19 | disposition home or self-care (01) ==
LOC: JER 18:35
DX: I10 Essential (primary) hypertension (principal)
CPT/HCPCS: 93005; 93010; 99283-25